=== PATIENT | female | born 1975 | race Caucasian/White ===

== ENCOUNTER 2018-10-20 06:35 | Day surgery (SDC) | payer OTHER ==
[~2018-10-20] VITALS: Ht 147.3 cm; Wt 82.5 kg
[~2018-10-20 06:35] MED LIST: ACET-66 PO; ALBU8HFA IH; AZIT250T9 PO; AZIT500T4 PO; BECL8.7A5 IH; ESCI10TA PO; FLUT16H NASAL; LOSA50TA64 PO; MOME13HF IH; MONT10TA21 PO; MYCO250C7 PO; PRED10 PO; PREM125 PO; PROV5 PO; PYRI60TA PO; SODIUM CHLORIDE 0.9% 1,000 ML IV ONE
[2018-10-20] MEDS ORDERED: BENZOCAINE 20% 50 MCG/SPRAY 57 GM TP ONE (06:36)
[2018-10-20] MEDS ORDERED: ALBUTEROL SULFATE 2.5 MG/0.5 ML NEB SOLUTION NEB ONE (06:36)
[2018-10-20] MEDS ORDERED: LIDOCAINE 4% 50 ML SOLUTION TP ONE (06:36)
[2018-10-20] MEDS ORDERED: LIDOCAINE 2% 5 ML JELLY TP ONE (06:36)
[2018-10-20] MEDS ORDERED: SODIUM CHLORIDE 0.9% 1,000 ML IV ONE (06:45)
[2018-10-20] MEDS ORDERED: ATOR10TA84 PO (07:57)
[2018-10-20] MEDS ORDERED: BACL10TA PO (07:57)
[2018-10-20] MEDS ORDERED: OMEP20 PO (07:57)
[2018-10-20] MEDS ORDERED: MIDAZOLAM HCL 2 MG/2 ML VIAL ONE (08:35)
[2018-10-20] MEDS ORDERED: FentaNYL CITRATE-PF 100 MCG/2 ML VIAL ONE (08:35)
[2018-10-20] MEDS ORDERED: MethylPREDNISolone SOD SUCC 125 MG/2 ML VIAL IVP ONE (09:00)
[2018-10-20] MEDS ORDERED: MethylPREDNISolone SOD SUCC 125 MG/2 ML VIAL ONE (09:21)
[2018-10-20] MEDS ORDERED: OXYGEN THERAPY IH SCH (20:00)
== END 2018-10-20 10:50 | disposition home or self-care (01) ==
LOC: SURGERY 06:35
PROVIDERS: ATTEND Internal Medicine Critical Care Medicine
DX: J38.4 Edema of larynx (principal); B37.0 Candidal stomatitis; J98.09 Other diseases of bronchus, not elsewhere classified; J98.8 Other specified respiratory disorders; J45.998 Other asthma; I10 Essential (primary) hypertension; E78.00 Pure hypercholesterolemia, unspecified; E05.80 Other thyrotoxicosis without thyrotoxic crisis or storm; H53.2 Diplopia; G70.00 Myasthenia gravis without (acute) exacerbation; Z88.0 Allergy status to penicillin; Z88.5 Allergy status to narcotic agent; Z86.2 Personal history of diseases of the blood and blood-forming organs and certain disorders involving the immune mechanism; Z87.09 Personal history of other diseases of the respiratory system; Z98.890 Other specified postprocedural states
CPT/HCPCS: 31623; 31624; 71045; 84703; 87015; 87070; 87205; 87206; 87220; 88108; 88312; J2250; J2930; J3010; J7030

== ENCOUNTER 2019-02-16 11:48 | Emergency (ER) | payer OTHER ==
[~2019-02-16] VITALS: Ht 137.2 cm; Wt 81.8 kg
[~2019-02-16 11:48] MED LIST changes: -ACET-66 PO; +ATOR10TA84 PO; -AZIT250T9 PO; -AZIT500T4 PO; +BACL10TA PO; +OMEP20 PO; -PREM125 PO; -SODIUM CHLORIDE 0.9% 1,000 ML IV ONE
[2019-02-16] MEDS ORDERED: KETOROLAC TROMETHAMINE 30 MG/ML VIAL IM ONE (13:00)
[2019-02-16 13:40] VITALS: BP 133/91
== END 2019-02-16 14:51 | disposition home or self-care (01) ==
LOC: EMS 11:48
DX: G56.01 Carpal tunnel syndrome, right upper limb (principal); I10 Essential (primary) hypertension; Z88.0 Allergy status to penicillin; Z88.5 Allergy status to narcotic agent; Z79.899 Other long term (current) drug therapy
CPT/HCPCS: 73110; 73130; 96372; 99283; J1885